=== PATIENT | female | born 1945 | race Caucasian/White ===

== ENCOUNTER → 2020-06-02 | Outpatient (CLI) | payer OTHER ==
--- NOTE | 2020-06-02 12:56 | 2DMMODE ---
[place] [address] 2 D/M-MODE ECHOCARDIOGRAM Name: WINSTON ARANGO Room: [facility]#: [id number] Admission: 06/02/20 Attend Phys: Haritha Gomez MD Discharge: Date of : 41 Date of Service: 06/02/20 1256 Report #: [id number] THIS REPORT FOR: cc: Haritha Gomez MD, Lin W. MD Holkins, John M. MD [facility] ~ APPROVED REPORT Study performed: 06/02/2020 10:06:37 EXAM: Comprehensive 2D, Doppler, and color-flow Echocardiogram Patient Location: Out-Patient BSA: 1.91 HR: 82 bpm BP: 128/70 mmHg Other Information Study Quality: Fair Indications Palpitations Hypertension/HDD 2D Dimensions IVSd: 9.16 (7-11mm) LVOT Diam: 19.74 (18-24mm) LVDd: 41.90 mm PWd: 10.34 (7-11mm) Ascending Ao: 26.58 (22-36mm) LVDs: 27.00 (25-40mm) Aortic Root: 27.81 mm Volumes Left Atrial Volume (Systole) LA ESV Index: 11.20 mL/m2 Aortic Valve AoV Peak Cooper.: 1.45 m/s AO Peak Gr.: 8.46 mmHg LVOT Max P.58 mmHg AO Mean Gr.: 4.59 mmHg LVOT Mean P.87 mmHg LVOT Max V: 1.18 m/s AO V2 VTI: 26.69 cm LVOT Mean V: 0.78 m/s SEAMUS (VTI): 2.59 cm2 LVOT V1 VTI: 22.60 [place] [address] 2 D/M-MODE ECHOCARDIOGRAM Name: WINSTON ARANGO Room: [facility]#: [id number] Admission: 06/02/20 Attend Phys: Haritha Gomez MD Discharge: Date of : 41 Date of Service: 06/02/20 1256 Report #: [id number] E/A Ratio: 0.59 MV Decel. Time: 339.80 ms MV E Max Cooper.: 0.57 m/s MV PHT: 98.54 ms MVA (PHT): 2.23 cm2 TDI E/Lateral E': 7.13 E/Medial E': 9.50 Medial E' Cooper.: 0.06 m/s Lateral E' Cooper.: 0.08 m/s Pulmonary Valve PV Peak Cooper.: 0.90 m/s PV Peak Gr.: 3.27 mmHg Tricuspid Valve RAP Estimate: 5.00 mmHg TR Peak Gr.: 22.03 mmHg RVSP: 27.03 mmHg PA Pressure: 27.03 mmHg Left Ventricle The left ventricle is normal size. There is normal LV segmental wall motion. There is normal left ventricular wall thickness. Left ventricular systolic function is normal. The left ventricular ejection fraction is within the normal range. LVEF is 60%. Grade I - abnormal relaxation pattern. Right Ventricle The right ventricle is normal size. The right ventricular systolic function is normal. Atria The left atrium size is normal. The right atrium size is normal. Aortic Valve The aortic valve is normal in structure. No aortic regurgitation is present. There is no aortic valvular stenosis. Mitral Valve Mild mitral annular calcification. There is no mitral valve regurgitation noted. No evidence of mitral valve stenosis. Tricuspid Valve The tricuspid valve is normal in structure. Mild [place] [address] 2 D/M-MODE ECHOCARDIOGRAM Name: WINSTON ARANGO Room: [facility]#: [id number] Admission: 06/02/20 Attend Phys: Haritha Gomez MD Discharge: Date of : 41 Date of Service: 06/02/20 1256 Report #: [id number] Pulmonic Valve The pulmonary valve is normal in structure. There is no pulmonic valvular regurgitation. Great Vessels The aortic root is normal in size. IVC is normal in size and collapses >50% with inspiration. Pericardium There is no pericardial effusion. <Conclusion> The left ventricle is normal size. There is normal left ventricular wall thickness. Left ventricular systolic function is normal. The left ventricular ejection fraction is within the normal range. LVEF is 60%. Grade I - abnormal relaxation pattern. The right ventricle is normal size. The left atrium size is normal. The aortic valve is normal in structure. Mild mitral annular calcification. There is no mitral valve regurgitation noted. The tricuspid valve is normal in structure. Mild tricuspid regurgitation. IVC is normal in size and collapses >50% with inspiration. There is no pericardial effusion. There is normal LV segmental wall motion. <ELECTRONICALLY SIGNED> By: Ramesh Lindo MD, FACC 06/02/20 1256 1256 1256 Ramesh Lindo MD, FACC /INF
--- NOTE | 2020-06-03 15:47 | 24HR ---
[place] [address] HOLTER MONITOR REPORT Name: WINSTON ARANGO Room: [facility]#: [id number] Admission: 06/02/20 Attend Phys: Haritha Gomez MD Discharge: Date of : 41 Date of Service: 06/03/20 1328 Report #: [id number] THIS REPORT FOR: cc: Haritha Gomez MD, Lin W. MD Liston, Michael J. MD [facility] ~ [facility] Test Date: 2020-06-03 Test Time: 13:28:20 Pat Name: WINSTON ARANGO Department: Room: Gender: F Medical Insurance Coding Specialist: : 1945 Requested By: Haritha Gomez Order Number: [id number] Reading MD: Shyam Deng Interpretive Statements 24-hour Holter monitor The basic underlying rhythm is normal sinus. The mean heart rate was 78 bpm. The maximum heart rate was 128 bpm corresponding with sinus tachycardia at 1:35 PM. The minimum heart rate was 50 bpm corresponding with sinus bradycardia at 4:20 AM. The patient exhibited tachycardia defined as heart rate greater than 100 bpm 17% of the monitored time. The patient exhibited bradycardia defined as heart rate less than 50 bpm less than 1% of the monitored time. There were occasional premature atrial contractions noted. There were occasional episodes of nonsustained supraventricular tachycardia lasting up to 6 beats at a rate of 140 bpm. There were no sustained supraventricular arrhythmias. There were occasional unifocal premature ventricular contractions. There were no significant nonsustained or sustained ventricular arrhythmias. There were no significant pauses and rhythm. There was no evidence of underlying atrial fibrillation or flutter. A diary was submitted with this monitor [place] [address] HOLTER MONITOR REPORT Name: WINSTON ARANGO Room: [facility]#: [id number] Admission: 06/02/20 Attend Phys: Haritha Gomez MD Discharge: Date of : 41 Date of Service: 06/03/20 1328 Report #: [id number] Electronically Signed On 06-03-2020 15:47:23 [employer]OR TEACH[employer] by Shyam Deng [email or web address] <ELECTRONICALLY SIGNED> By: Shyam Deng MD, [facility] 06/03/20 1547 1328 1328 Shyam Deng MD, FACC /EPI
== END ==
LOC: M.CRD 05-27 10:01
PROVIDERS: ATTEND Internal Medicine
DX: I08.1 Rheumatic disorders of both mitral and tricuspid valves (principal); R00.2 Palpitations